=== PATIENT | female | born 1980 | race African-American/Black ===

== ENCOUNTER → 2017-02-28 | Outpatient (CLI) | payer OTHER ==
[2014-06-13 13:45] VITALS: BP 138/88
--- NOTE | 2017-02-28 16:00 | KCIC ---
PROCEDURE Obstetric ultrasound, greater than 14 weeks. HISTORY Large for dates. TECHNIQUE Real-time ultrasound imaging of the gravid uterus using transabdominal window is performed. COMPARISON None. FINDINGS A single intrauterine fetus is seen in breech position. heart rate is 140 beats per minute. BPD is 5.3 cm which equals 22 weeks 2 days. HC is 20.2 cm which equals 22 weeks 2 days. AC is 18.7 cm which equals 23 weeks 3 days. FL is 4.2 cm which equals 23 weeks 3 days. Average gestational age by ultrasound is 22 weeks 6 days with an EDC of June 28, 2017. Estimated weight is 582 +/- 86 grams. A four-chamber heart and three-vessel cord are identified. stomach and urinary bladder are identified. kidneys are unremarkable. Cord insertion site is unremarkable. spine images not saved for review. ALLIE using the four quadrant method is 20.6 cm. Cervix is not well seen. A posterior and fundal placenta is seen. No placenta previa and no placenta abruptio is identified. The maternal ovaries are not visualized. IMPRESSION 1. Single live intrauterine , estimated sonographic gestational age 22 weeks and 6 days. 2. Mild polyhydramnios. Electronically signed by: Hipolito Mackenzie MD (Feb 28, 2017 15:58:36)
== END | disposition home or self-care (01) ==
LOC: KCIC US 14:17
PROVIDERS: ATTEND Family Medicine
DX: P08.1 Other heavy for gestational age newborn (principal)
CPT/HCPCS: 76805; 76817